=== PATIENT | female | born 1985 | race Caucasian/White ===

== ENCOUNTER 2024-12-17 09:50 | Emergency (ER) | payer OTHER, SELFPAY ==
[2024-12-17 09:57] VITALS: BP 146/108; PULSE 77; O2SAT 96
[2024-12-17 10:00] VITALS: BP 146/108; PULSE 76; RESP 20; TEMP 36.8; O2SAT 96; BMI 22.1
[2024-12-17 11:00] VITALS: BP 122/88; PULSE 67; O2SAT 96
--- NOTE | 2024-12-17 11:18 | PC.NURSE ---
Confirmed with patient no known drug allergies
--- NOTE | 2024-12-17 11:27 | ED_ITS ---
Discharge Plan Disposition Patient Disposition: Home, Self-Care Prescriptions Prescriptions: New sulfamethoxazole-trimethoprim [Bactrim DS] 800-160 mg tablet 1 tab PO BID 10 Days Qty: 20 0RF cephalexin 500 mg capsule 500 mg PO QID 10 Days Qty: 40 0RF Referrals Follow up/Referrals: Provider,Referral, [Primary Care Provider, Medical] - See instructions Activity Restrictions/Add. Instructions Additional Instructions/Restrictions: Please follow-up with the comprehensive breast care clinic at [facility] to ensure appropriate resolution of this infected breast. [phone] Clinical Impressions Clinical Impression: Infected pierced nipple, Cellulitis of breast Instructions Patient Instructions: DI for Skin Abscess Print Language Print Language: Lithuanian Discharge ED Provider: Ramon Martino General Adult HPI General Chief complaint: Skin/Abscess/Foreign Body Stated complaint: poss infection in R. breast w/pain Time Seen by Provider: 12/17/24 11:04 Mode of Arrival: Ambulatory Source of Information: Patient Description of Symptoms (Recalled from ER Triage Doc. by RN): pt is here for abcess on rigth nipple that popped up two days ago, it does have a white center to it and pt states behind the nipple is red, hard and tender to touch. History of Present Illness HPI narrative: 39-year-old presenting today with a pustule/infection of her right breast. Had her nipples pierced when she was 17 years old but has not had any metallic foreign bodies going through the piercings for several years. The location of the medial aspect of the right nipple piercing is infected. She also has burning redness around the nipple itself. No fevers or chills. Related Data Previous Rx's ?Medication ?Instructions ?Recorded cephalexin 500 mg capsule 500 mg PO QID 10 days #40 ca ps 12/17/24 sulfamethoxazole 800 1 tab PO BID 10 days #20 tab s 12/17/24 mg-trimethoprim 160 mg tablet (Bactrim DS) Allergies Allergy/AdvReac Type Severity Reaction Status Date / Time No Known Allergies Allergy Verified 12/17/24 11:18 [facility] Disclaimer: The information contained in this section may have been updated after the patient was seen, as this information can be updated by other users. Social History Smoking Status: Current every day smoker alcohol intake: never current occupational status: other Travel in the last 8 weeks?: None ROS Obtained: Yes All systems reviewed & no additional complaints except as documented Physical Exam General General appearance: alert Expanded Chest Exam Female Torso: 2 1. Pustule 2. Cellulitis Respiratory Respiratory exam: Present normal lung sounds bilaterally Cardiovascular Cardiovascular exam: Present regular rate Neurological Exam Neurological exam: Present alert and oriented X3 Medical Decision Making Medical Records Screening: Per USPSTF and CDC recommendations, given the prevalence of disease in our region, it is our hospital?s policy to screen for HIV and viral Hepatitis for all patients aged 18 and over and those with ongoing risk factors. Nimesh Inquiry Pt receiving controlled substance: No Vital Signs: 12/17/24 09:57 12/17/24 10:00 12/17/24 11:00 Temperature 98.3 F Temperature Source Oral Pulse Rate 77 67 Pulse Rate [Left Radial] 76 Respiratory Rate 20 Blood Pressure 146/108 H 122/88 Blood Pressure [Right Arm] 146/108 H Blood Pressure Mean [Right Arm] 120 02 Sat by Pulse Oximetry 96 96 96 Oxygen Delivery Method Room Air Room Air Room Air Orders (Tests/Meds): ED MEDICATIONS Discontinued Medications Generic Name Dose Route Start Last Admin Trade Name Freq PRN Reason Stop Dose Admin Cephalexin HCl 500 mg 12/17/24 11:13 Cephalexin 500mg Capsule PO 12/17/24 11:14 ONCE ONE Trimethoprim/Sulfamethoxazole 1 each 12/17/24 11:13 Sulfa/Trimethoprim 1 Tablet PO 12/17/24 11:14 ONCE ONE ORDERS Category Date Time Status POCUS Point of Care (ER Only) Stat Exams 12/17/24 11:06 Ordered Medical Decision Narrative: 39-year-old with above history and physical. She had a very small pustule and surrounding cellulitis no large drainable fluid collection. However after needle incision and drainage significant amount purulent debris came out several cc. The suggest that there was some soft tissue fluid collecting. I given her comprehensive breast care clinic follow-up [facility] also started antibiotics including Keflex and Bactrim. She is not systemically ill she does not need emergent surgical intervention at the moment but will follow-up with that surgical multiple disciplinary team. Patient was discharged in stable and improved condition. Procedures Abscess I/D Site: other (Right nipple) Side (if applicable): right Local Anesthetic: lidocaine 1% and with epi Amount of anesthesia used (mL): 2 Technique: needle aspiration Amount of fluid expressed (mL): 3 Packing used?: none Miscellaneous Procedure Procedure Performed: Limited soft tissue ultrasound Indication: Breast pustule Identified structures: Location: Right breast Findings: Soft tissue fluid tracking in the soft tissues but no definitive drainable fluid collection Impression: Evidence of breast cellulitis but no definitive large abscess Images were saved to permanent archive The study was technically adequate Soft Tissue CPT Codes: CPT Neck: 06256-40 CPT Upper extremity: 83389-37 CPT Axilla: 00858-88 CPT Chest wall: 30883-86 CPT Breast: 65461-26-FQ/LT (complete), 53626-69-CX/LT (limited), CPT Upper Back: 71738-22 CPT Lower Back: 57691-81 CPT Abdominal Wall: 86825-61 CPT Pelvic Wall: 71410-80 CPT Lower Extremity: 62803-97 CPT Other Soft Tissue: 04678-34 This study was performed by me, and I personally interpreted all images/videos. Based on my clinical judgement, these images were adequate and did not necessitate further imaging. Critical Care Critical Care Time Critical Care Time: No
[2024-12-17] MEDS: cephALEXin 500MG CAPSULE 500 MG PO (11:28)
[2024-12-17] MEDS: SULFA/TRIMETHOPRIM 1 TABLET 1 EACH PO (11:28)
[2024-12-17] MEDS: LIDOCAINE 1% W/EPI 1:100,000 20ML VIAL 20 ML IJ (11:36)
[2024-12-17 11:38] VITALS: BP 140/95; PULSE 80; RESP 20; TEMP 36.8; O2SAT 98
== END 2024-12-17 11:43 | disposition home or self-care (01) ==
PROVIDERS: Emergency Provider Student in an Organized Health Care Education/Training Program
DX: N61.1 Abscess of the breast and nipple (principal); S21.031A Puncture wound without foreign body of right breast, initial encounter; F17.210 Nicotine dependence, cigarettes, uncomplicated; X58.XXXA Exposure to other specified factors, initial encounter
CPT/HCPCS: 10060; 99284; J2004